=== PATIENT | male | born 1960 ===

== ENCOUNTER 2017-06-21 03:10 | Inpatient (IN) | payer BC ==
[2017-06-21] MEDS ORDERED: Fentanyl 100 MCG/2 ML VIAL SLOW IVP PRN (10:09)
[2017-06-21] MEDS ORDERED: Ondansetron ODT 4 MG TAB SL PRN (10:10)
[2017-06-21] MEDS ORDERED: Ondansetron HCl/PF 4 MG/2 ML Vial IVP PRN (10:10)
[2017-06-21] MEDS ORDERED: Dextrose 50% Abboject 50 ML SYRINGE SLOW IVP PRN ×2 (16:32→16:33)
[2017-06-21] MEDS ORDERED: Dextrose 5% in Water 1,000 ML IV PRN ×2 (16:32→16:33)
[2017-06-21] MEDS ORDERED: HumaLOG 300 UNITS/3 ML VIAL SC PRN (16:33)
[2017-06-21] MEDS ORDERED: hydrALAZINE 20 MG/ML VIAL SLOW IVP PRN (16:33)
[2017-06-21] MEDS ORDERED: Sodium Chloride 0.9% 20 ML ONE (16:38)
[2017-06-21] MEDS ORDERED: Acetaminophen 1,000 MG in Premix Bag 1 BAG IVPB PRN (16:40)
[2017-06-21] MEDS ORDERED: Ketorolac Tromethamine 30 MG/ML VIAL IVP PRN (16:40)
[2017-06-21] MEDS ORDERED: Sodium Chloride 0.9% 1,000 ML IV SCH (16:45)
--- NOTE | 2017-06-21 18:28 | RAD ---
PA AND LATERAL CHEST: History: Small bowel obstruction, tobacco abuse. FINDINGS/IMPRESSION: The heart size is normal. The lungs are well expanded without confluent areas of consolidation, pneum othorax, or pleural effusions. There is a nasogastric tube with tip below the level of the diaphragm, close to the GE junction. Recommend advancement of the tube. POS: [facility]
--- NOTE | 2017-06-21 18:37 | RAD ---
ABDOMEN TWO VIEWS: History: Small bowel obstruction. FINDINGS/IMPRESSION: There is a nasogastric tube with the tip below the level of the diaphragm close to the GE junction. T here is air and dilated loops of small bowel in the left hemidiaphragm. There is fecal material in th e right side of the colon. Degenerative changes are present in the spine. Advancement of the nasogast romy tube is suggested. POS: [facility]
[2017-06-21] MEDS: Sodium Chloride 0.9% 1,000 ML IV SCH ×2 (20:30→22:39)
[2017-06-21] MEDS: Famotidine/PF 20 mg/2ml Vial SLOW IVP SCH (20:30)
[2017-06-21] MEDS ORDERED: Enoxaparin Sodium 40 MG/0.4 ML SYRINGE SC SCH (21:00)
--- NOTE | 2017-06-22 00:08 | HP ---
HISTORY OF PRESENT ILLNESS: Sebastián Pringle is a 57-year-old male from [place]. The patient began having pain in his central abdomen. Three days ago, he developed nausea and vomiting. His last loree l movement yesterday morning. He is passing gas today. He presented to the emergency room in [facility] late last night. CAT scan of abdomen and pelvis suggested findings of bowel obstruction. LABORATORY DATA: Laboratories revealed sodium 134, potassium 4.1, chloride 95, CO2 of 22, BUN 16.9, creatinine 0.9, bilirubin 1.4, alkaline phosphatase 109, lipase 21. White count 12, hemoglobin 19, h ematocrit 58. Urinalysis unremarkable. The patient was sent to [facility], kept in the doctors hospital room all night long and approximately 1 o'clock arrived on the pediatrics floor when a bed bec stan available. The patient reports having had 1 liter of IV fluid in [place] and has been saline l ocked since that time. He was not having any IV fluid when I walked into the room. NG tube has been placed and has not had much out since he has been on the floor. The patient states his abdomen is n ormal size, although distended and protuberant and when percussed, it is tympanitic. The patient rep orts having had a colonoscopy last year. There are reports of having had an EGD in 09/2015 showing B arrett's esophagus on pathology tissue from Dr. Becerra, the outpatient [facility]. Report of upper endoscopy and colonoscopy is not available. ALLERGIES: DARVOCET. TOBACCO: One and half packs per day. ALCOHOL: Rarely. MEDICATIONS: At home, he takes metformin 1500 mg a day, Prevacid 30 mg a day, lovastatin 20 mg a day . PAST SURGICAL HISTORY: Umbilical hernia repair with mesh six years ago at an outside facility. PAST MEDICAL HISTORY: Diabetes mellitus, elevated cholesterol. SOCIAL HISTORY: Tobacco abuse. 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 He has never had a cardiac stress test and does not have any cardiac symptoms. He is and lives in [place]. REVIEW OF SYSTEMS: Ten point noncontributory otherwise. PHYSICAL EXAMINATION: GENERAL: The patient is in no distress. NG tube is present 55 cm. VITAL SIGNS: 98.2 degrees, 101, 20, 105/83, 104 kilograms. HEAD, EARS, EYES, NOSE AND THROAT: Unremarkable. LUNGS: Clear to auscultation, no wheezing. CARDIAC: Regular rate and rhythm. ABDOMEN: Distended, protuberant, tympanitic, midline scar, periumbilical consistent with umbilical h ernia repair. EXTREMITIES: Unremarkable. No ankle edema or palpable pulses. ASSESSMENT AND PLAN: 1. Dehydration. The patient has not been adequately hydrated. We will give him saline bolus and ma intenance IV fluids 150 an hour. We will continue NG tube to suction. We will obtain abdominal x-ra ys to check status of his abdomen. Likely, we will have a small bowel followthrough tomorrow. I exp ect this probably to resolve and him to get better. He had a similar episode a few years ago, treate d at an outside facility and resolved without surgery. 2. Tobacco abuse. 3. Diabetes mellitus. ADDENDUM: Mr. Pringle has refused IV fluids. Since he has been on the floor, his nurse states the patient has r efused IV fluids insisted that he will probably be going home and refuses all other interventions or care. I have explained to the patient that he is still distended and tympanitic and the CAT scan tico sosa, we will need to further evaluate things to make sure he does not have a bowel obstruction and to ensure that he does not have to return to the hospital. He is agreeable.
[2017-06-22] MEDS: Sodium Chloride 0.9% 1,000 ML IV SCH ×3 (03:24→09:11)
[2017-06-22 05:26] LABS: #Basophils 0.1 thou/uL (0.0-0.2); #Eosinphils 0.3 thou/uL (0.0-0.7); #Lymphocytes 1.9 thou/uL (1.20-3.40); #Monocytes 0.9 thou/uL (0.11-0.59); #Neutrophils 4.7 thou/uL (1.40-6.50); %Basophils 0.8 % (0.0-1.0); %Eosinophils 3.8 % (0.0-10.0); %Lymphocytes 23.9 % (21.0-51.0); %Monocytes 11.2 % (0.0-10.0); %Neutrophils 60.3 % (42.0-75.0); Hemoglobin 15.7 g/dL (14.0-18.0); Mean Corpuscular Hemoglobin 29.2 pg (27.0-31.0); Mean Corpuscular Volume 91.1 fl (80.0-94.0); Mean Platelet Volume 7.3 fL (7.4-10.4); Platelet Count 228 thou/uL (130-400); RBC Distribution Width 11.7 % (11.5-14.5); Red Blood Cell (RBC) Count 5.39 mill/uL (4.70-6.10); White Blood Cell (WBC) Count 7.8 thou/uL (4.8-10.8)
[2017-06-22 05:35] LABS: ALT (SGPT) 15 U/L (8-55); AST (SGOT) 11 U/L (5-34); Albumin 3.5 g/dL (3.5-5.0); Alkaline Phosphatase 78 U/L (40-150); Anion Gap 12 mmol/L (10-20); BUN (Urea Nitrogen) 12 mg/dL (8.4-25.7); Bilirubin, Total 1.1 mg/dL (0.2-1.2); Calc. Creatinine Clearance 0 mL/min (70-130); Calcium 8.4 mg/dL (7.8-10.44); Carbon Dioxide 23 mmol/L (22-29); Chloride 104 mmol/L (98-107); Estimated GFR-MDRD Greater than 90; Globulin 2.7 g/dL (2.4-3.5); Glucose 136 mg/dL (70-105); Potassium 3.4 mmol/L (3.5-5.1); Protein, Total 6.2 g/dL (6.0-8.3); Sodium 136 mmol/L (136-145)
[2017-06-22] MEDS ORDERED: FLU VACC QS2017-18 36 mo. & older 0.5 ML SYRINGE IM ONE (09:00)
[2017-06-22] MEDS: Famotidine/PF 20 mg/2ml Vial SLOW IVP SCH (09:11)
--- NOTE | 2017-06-22 10:33 | RAD ---
UPRIGHT AND SUPINE IMAGING OF THE ABDOMEN: Date: 06-22-17 Comparison: 06-21-17 History: Small bowel obstruction. FINDINGS: There is persistent gaseous dilation of small bowel within the lateral aspect of the left abdomen wit h dilated loops of small bowel measuring up to 5-6 cm in transverse dimension. Significant stool is s een within the colon and pelvis and right abdomen. The upright imaging demonstrates no evidence for f ree intraperitoneal air. IMPRESSION: Persistent gas filled dilated small bowel in the mid left abdomen suggests small bowel obstruction or ileus. Continued follow up to resolution advised. CT examination of the abdomen and pelvis would be beneficial for further assessment. POS: [facility]
--- NOTE | 2017-06-22 11:31 | RAD ---
GASTROGRAFIN SMALL BOWEL FOLLOW THROUGH: History: Bowel obstruction. Gastrografin was given orally. Overhead images obtained. FINDINGS: The small bowel is mildly dilated. Gastrografin does fill the small bowel and passes from the proxima lly dilated small bowel into the distal small bowel at approximately 30 minutes. By 45 minutes there is definite filling and opacification of the ascending colon. This suggests that the small bowel is p atent although mildly dilated proximally. IMPRESSION: Gastrografin does pass within 30 minutes through the entire small bowel, definitely in the colon by 4 5 minutes. No definite evidence of obstruction seen. POS: [facility]
[2017-06-22] MEDS ORDERED: MD-Gastroview 120 ML BOT ONE (12:14)
[2017-06-22 12:51] VITALS: BP 123/77; TEMP 98.6
--- NOTE | 2017-06-22 14:29 | PRG ---
DATE OF SERVICE: 06/22/2017 SUBJECTIVE: Mr. Pringle is doing well today. Small bowel follow through was performed today along wi th a 3 view abdomen. He did have some dilated small bowel loops on his plain films. He subsequently underwent a small bowel follow through Gastrografin. He sneezed out his NG tube prior to the study and he orally consume Gastrografin passing through the entire small bowel seen in the colon within 45 minutes, no evidence of a complete bowel obstruction was seen. Patient tolerated his diet. He has been discharged home today to resume his home medications, which had not been reconciled since admiss ion. He will follow up in my office p.r.n. Follow up with his primary care physician, Dr. Lilly.
--- NOTE | 2017-06-22 19:25 | DIS ---
DATE OF ADMISSION: 06/21/2017 DATE OF DISCHARGE: 06/22/2017 DISCHARGE DIAGNOSES: Partial small-bowel obstruction, tobacco abuse, diabetes mellitus, obesity, hyp ertension. Note allergy to acetaminophen is incorrect, he is allergic to DARVOCET, not acetaminophen . HISTORY: A 57-year-old male with a previous history of umbilical hernia repair with mesh, operation performed elsewhere, more than a year ago, with a partial bowel obstruction, treated nonsurgically no w, presents with nausea, vomiting, abdominal distention in the emergency room. He was admitted. NG tube placed. Repeat x-rays revealed the NG tube to be in the esophagus. It was advanced into the st omach. Gastric output was minimal. Repeat abdominal x-rays this morning revealed some distended loo ps of small bowel, but gas in the colon. He underwent a small bowel follow-through with transit of c ontrast into the colon and within 45 minutes he was having bowel movements. He tolerated diet. At t his point, he is being discharged home to resume his home medications, metformin 1500 mg a day, Preva wilder every day, and lovastatin. He is given a prescription of these medications until he can see his primary care physician.
== END 2017-06-22 14:06 | disposition home or self-care (01) | DRG 390 ==
LOC: ERS 03:10 → ERHOLD 04:05 → 3SE 08:35
PROVIDERS: ADMIT Specialist; ATTEND Specialist
DX: K56.609 Unspecified intestinal obstruction, unspecified as to partial versus complete obstruction (principal); E11.9 Type 2 diabetes mellitus without complications; E86.0 Dehydration; F17.210 Nicotine dependence, cigarettes, uncomplicated; Z79.84 Long term (current) use of oral hypoglycemic drugs; I10 Essential (primary) hypertension; E66.9 Obesity, unspecified; Z88.6 Allergy status to analgesic agent
CPT/HCPCS: 36415; 36416; 71046; 74019; 74250; 80053; 83605; 85025; 93005; 93010; 99285; A4216; J1650; J3010; S0028